=== PATIENT | female | born 1965 | race Caucasian/White ===

== ENCOUNTER 2017-07-26 20:02 | Emergency (ER) | payer SELFPAY, MEDICAID ==
[2017-07-26] MEDS: KETOROLAC 15 MG INJ IM (23:56)
== END 2017-07-27 01:25 | disposition home or self-care (01) ==
LOC: FTE 20:02
DX: M79.622 Pain in left upper arm (principal)
CPT/HCPCS: 73060; 93005; 96372; 99284-25